=== PATIENT | female | born 1980 ===

== ENCOUNTER 2017-01-24 20:08 | Inpatient (IN) | payer MEDICAID ==
[~2017-01-24] VITALS: Ht 170.2 cm; Wt 70.0 kg
[2017-01-24 20:42] LABS: DAU SCREEN DISCLAIMER
[2017-01-24] MEDS ORDERED: OXYTOCIN 30U/ 0.9% NaCL 500ML 500 ML IV PRN (22:41)
[2017-01-24] MEDS ORDERED: LACTATED RINGERS 1,000 ML IV SCH (22:41)
[2017-01-24] MEDS ORDERED: OXYTOCIN 30U/ 0.9% NaCL 500ML 500 ML IV ONE (22:41)
[2017-01-24] MEDS ORDERED: D5%-LACTATED RINGERS 1,000 ML IV SCH (22:41)
[2017-01-24] MEDS ORDERED: NEWBORN KIT ONE (22:53)
[2017-01-24] MEDS ORDERED: OXYTOCIN 30U/ 0.9% NaCL 500ML 500 ML ONE (22:53)
[2017-01-24] MEDS ORDERED: ONDANSETRON 2MG/ML, 2ML IVPush PRN (23:00)
[2017-01-24] MEDS ORDERED: FENTANYL PF 100 MCG/2ML IV PRN (23:00)
[2017-01-24] MEDS ORDERED: CALCIUM CARBONATE 500 MG TAB.CHEW PO PRN (23:00)
[2017-01-24] MEDS ORDERED: PENICILLIN GK 5,000,000 UNITS in DEXTROSE 5% 100 ML IVPB ONE (23:00)
[2017-01-24 23:11] LABS: HIV 1&2 ANTIBODY SCREEN Nonreactive (Nonreactive); HIV-1 p24 ANTIGEN Nonreactive (Nonreactive)
[2017-01-25] MEDS: PENICILLIN GK 2,500,000 UNITS in DEXTROSE 5% 100 ML IVPB SCH ×2 (03:01→06:56)
[2017-01-25] MEDS ORDERED: FENTANYL PF 100 MCG/2ML ONE ×5 (05:24→11:56)
[2017-01-25] MEDS: FENTANYL PF 100 MCG/2ML IVPush PRN ×5 (06:22→11:59)
[2017-01-25 07:43] VITALS: BP 122/83
[2017-01-25] MEDS ORDERED: LIDOCAINE 1%, 20ML ONE (11:25)
[2017-01-25] MEDS ORDERED: MISOPROSTOL 200 MCG TABLET ONE (11:25)
[2017-01-25] MEDS: OXYTOCIN 30U/ 0.9% NaCL 500ML 500 ML IV SCH ×2 (12:23→22:23)
[2017-01-25] MEDS ORDERED: METHYLERGONOVINE 0.2 MG/ML IM PRN (12:30)
[2017-01-25] MEDS ORDERED: ONDANSETRON 2MG/ML, 2ML IV PRN (12:30)
[2017-01-25] MEDS ORDERED: DIPH,PERTUSS(ACELL),TET VAC/PF NC IM-VACC PRN (12:30)
[2017-01-25] MEDS ORDERED: MISOPROSTOL 200 MCG TABLET PR PRN (12:30)
[2017-01-25] MEDS ORDERED: CALCIUM CARBONATE 500 MG TAB.CHEW PO PRN (12:30)
[2017-01-25] MEDS ORDERED: OXYcodone/APAP 5/325MG TABLET PO PRN ×2 (12:30)
[2017-01-25] MEDS ORDERED: IBUPROFEN 600 MG TABLET ONE (13:16)
[2017-01-25] MEDS: IBUPROFEN 600 MG TABLET PO PRN ×2 (13:18→19:31)
[2017-01-25 14:15] VITALS: BP 117/80
[2017-01-25 16:30] VITALS: BP 125/82
[2017-01-25 19:15] VITALS: BP 121/84
[2017-01-25] MEDS: DOCUSATE 100 MG CAPSULE PO PRN (19:31)
[2017-01-25] MEDS: ACETAMINOPHEN 325 MG TABLET PO PRN (21:07)
[2017-01-26 00:15] VITALS: BP 122/78
[2017-01-26] MEDS: ACETAMINOPHEN 325 MG TABLET PO PRN ×2 (03:02→08:57)
[2017-01-26] MEDS: IBUPROFEN 600 MG TABLET PO PRN ×4 (03:02→23:05)
[2017-01-26] MEDS: OXYTOCIN 30U/ 0.9% NaCL 500ML 500 ML IV SCH (06:04)
[2017-01-26 08:00] VITALS: BP 114/72
[2017-01-26] MEDS: DOCUSATE 100 MG CAPSULE PO PRN ×2 (08:57→23:05)
[2017-01-26] MEDS: PRENATAL VIT/IRON/FA 1 EACH TABLET PO SCH (08:57)
[2017-01-26 19:15] VITALS: BP 118/79
[2017-01-27] MEDS: IBUPROFEN 600 MG TABLET PO PRN ×2 (06:39→15:09)
[2017-01-27 07:15] VITALS: BP 112/76
[2017-01-27] MEDS: DOCUSATE 100 MG CAPSULE PO PRN (08:54)
[2017-01-27] MEDS: PRENATAL VIT/IRON/FA 1 EACH TABLET PO SCH (08:54)
[2017-01-27] MEDS: OXYTOCIN 30U/ 0.9% NaCL 500ML 500 ML IV SCH (14:23)
[2017-01-27] MEDS ORDERED: IBUP-1222 PO (15:50)
== END 2017-01-27 17:15 | disposition home or self-care (01) | DRG 775 ==
LOC: LDOP 20:08 → LDIP 22:18 → 2NW 01-25 13:52
PROVIDERS: ADMIT Obstetrics & Gynecology; ATTEND Obstetrics & Gynecology
PROC: 10E0XZZ Delivery of Products of Conception, External Approach (ICD-10-PCS; principal; 2017-01-24)
PROC: 0W8NXZZ Division of Female Perineum, External Approach (ICD-10-PCS; 2017-01-24)
DX: O42.913 Preterm premature rupture of membranes, unspecified as to length of time between rupture and onset of labor, third trimester (principal); Z37.0 Single live birth; Z3A.36 36 weeks gestation of pregnancy; O76 Abnormality in fetal heart rate and rhythm complicating labor and delivery
CPT/HCPCS: 36415; 80307; 81001; 85025; 86592; 86703; 86762; 86850; 86900; 87081; 87086; 87340; 87899; 89060; 90715; J2540; J3010; G0435; J2590; J7121; Q0114